=== PATIENT | female | born 1950 ===

== ENCOUNTER 2021-09-29 18:28 | Emergency (ER) | payer OTHER ==
[2021-09-29] MEDS ORDERED: ACETAMINOPHEN 500 MG TABLET (FP) PO ONE (18:36)
[2021-09-29] MEDS ORDERED: ACETAMINOPHEN 500 MG TABLET (FP) ONE (18:42)
[2021-09-29 18:43] VITALS: BP 167/84; PULSE 70; TEMP 98.3; BMI 21.4
== END 2021-09-29 19:39 | disposition home or self-care (01) ==
LOC: FER 18:28
DX: S80.02XA Contusion of left knee, initial encounter (principal); W01.0XXA Fall on same level from slipping, tripping and stumbling without subsequent striking against object, initial encounter
CPT/HCPCS: 73562-TC-LT-FY; 99283-25